=== PATIENT | female | born 1960 | race Caucasian/White ===

== ENCOUNTER 2022-04-28 08:30 | Emergency (ER) | payer OTHER, SELFPAY ==
[2022-04-28 08:45] VITALS: BP 141/84; PULSE 100; RESP 20; TEMP 36.8; O2SAT 94; BMI 24.0
--- NOTE | 2022-04-28 09:17 | CRLHL7_ITS ---
For Patients: As a result of the 21st Century Cures Act, medical imaging exams and procedure reports are released immediately into your electronic medical record. You may view this report before your referring provider. If you have questions, please contact your health care provider. Indication: Radiculopathy and weakness. Technique: T2, T1, and STIR sagittal as well as T1 and T2 axial sequences were obtained. No IV contrast. Comparison: None available. Findings: There are 5 lumbar type vertebral segments identified. The vertebral body heights appear maintained without evidence of fracture. No discrete T1 hypointense marrow infiltrating process. Hemangioma noted within the L5 vertebral body. Superior endplate Schmorl`s node at L3. The conus medullaris terminates at L1, normal. Cauda equina appears unremarkable. T12-L1: No spinal canal or neural foraminal stenosis. L1-2: Mild disc height loss and desiccation. Disc bulge coupled with ligamentum flavum thickening and facet arthropathy resulting in mild spinal canal narrowing. Mild neural foraminal narrowing. L2-3: Mild disc height loss and desiccation. Mild disc bulge coupled with ligamentum flavum thickening and facet hypertrophy resulting in mild spinal canal narrowing. No neural foraminal narrowing. L3-4: Grade 1 anterolisthesis. Disc bulge with facet arthropathy resulting in moderate spinal canal narrowing. Moderate lateral recess narrowing encroaching upon the descending L4 nerves. Mild neural foraminal narrowing. L4-5: Mild disc height loss and desiccation. Mild disc bulge with arthropathy resulting in mild spinal canal narrowing. Moderate lateral recess narrowing encroaching upon the descending L5 nerves. Mild neural foraminal narrowing. Moderate to severe facet arthropathy. L5-S1: Mild disc height loss and desiccation. No spinal canal narrowing. Moderate left neural foramina narrowing secondary to disc bulge and facet arthropathy. Severe facet hypertrophy. There is STIR hyperintensity surrounding the right greater than left facet joint. Mild sacroiliac joint osteoarthritis. Impression: 1. At L3-4, grade 1 anterolisthesis with moderate spinal canal and lateral recess narrowing. Encroachment upon the descending L4 nerves. 2. At L4-5, moderate lateral recess narrowing with encroachment upon the descending L5 nerves. Moderate to severe facet arthropathy. 3. At L5-S1, moderate left neural foraminal narrowing. Severe facet arthropathy, with edema suggesting reactive/inflammatory facet arthritis. 4. Milder degenerative changes at the remaining lumbar levels. Dictated by Alpesh Prieto MD @ 04/28/2022 2:10:32 PM (Electronically Signed)
[2022-04-28] MEDS: KETOROLAC 15 MG/ML inj IVP (09:30)
--- OUTSIDE RECORDS SUMMARY | 2022-04-28 09:54 | XMS_ITS | Clinical Summary ---
:1960 Author Organization [facility] [place] [address] Care Team Providers Name Role Phone All/Asthma, [place] Unavailable Unavailable Pcp, No Primary Care Provider Unavailable Allergies Active Allergy Reactions Severity Noted Date Comments Dust Mites Runny Nose Medium 10/03/2011 Allergens inclu de Mold fip Cat dog mite2 dust t-po llen Medications Medication Sig Dispensed Refills Start Date End Date Status FLUoxetine (PROZAC) 10 Take 1 capsule by 90 capsule 0 08/25/19 16 Active mg capsuleIndications: mouth once daily. Premenstrual tension syndrome fluticasone (50 mcg Inhale 2 Sprays 1 Bottle 4 10/02/2018 Active per actuation) nasal into both solution nostrils 2 times (FLONASE)Indications: daily. Acute non-recurrent maxillary sinusitis Active Problems Problem Noted Date Bilateral carpal tunnel syndrome 11/11/2014 Routine general medical examination at [facility] 10/18/2012 Overview: Normal colonoscopy 2010; due in ten year s Allergic rhinitis, cause unspecified 04/03/2006 Unspecified asthma(493.90) 04/03/2006 Premenstrual tension syndromes 04/03/2006 Immunizations Name Administration Dates Next Due Td (Age >=7 Years) 08/27/1998 Tdap 10/15/2016, 06/10/2009 Family History Medical History Relation Name Comments Other Father Renal failure, g out, and colostomy Cancer-breast Mother Good Health Mother Good Health Sister 2 Relation Name Status Comments Child Potter Syndrome Father Alive Mother Alive Sister 1 Alive Sister 2 Social History Tobacco Use Types Packs/Day Years Used Date Never Smoker Smokeless Tobacco: Never Used Tobacco Cessation: Counseling Given: Yes Alcohol Use Standard Drinks/Week Comments Yes 0 (1 standard drink = 0.6 oz pure alcoho l) drinks socially Sex Assigned at Date Recorded Not on file Obstetrics History Para Term AB IAB SAB Ectopic Multiple Living Live Births 4 3 1 1 2 Date Outcome GA Total Labor/2nd/3rd Weight Sex Delivery Anes PTL Vira A 1 A5 Name Clin Labor SAB Para Para Para Last Filed Vital Signs Vital Sign Reading Time Taken Comments Blood Pressure 122/70 10/02/2018 2:04 PM CDT Pulse 88 10/02/2018 2:04 PM CDT Temperature 36.6 ??C (97.8 ??F) 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 Respiratory Rate 20 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 Oxygen Saturation 96% 10/02/2018 2:04 PM CDT Inhaled Oxygen Concentration - - Weight 71.5 kg (157 lb 9.6 oz) 10/02/2018 2:04 PM CDT Height 162.6 cm (5' 4) 10/02/2018 2:04 PM CDT Body Mass Index 27.05 10/02/2018 2:04 PM CDT Plan of Treatment Health Maintenance Due Date Last Done Comments COVID-19 vaccine series (#1) 06/11/1960 Depression screening for age 12+ 1971 HIV for age 15-65 12/09/1974 Hepatitis C screening for age 0712/09/1977 18-79 Zoster (shingles) series for age 0712/09/2009 50+ (1 of 2) Mammogram for age 45-75 11/17/2015 11/16/2014, 11/11/2014, 11/04/2013, Additional history exists Lipids for age 45-75 08/07/2016 08/08/2011, 08/02/2011 BMI (ht and wt on same day) for 10/03/2019 10/02/2018 age 18+ Colonoscopy through age 75 09/01/2020 09/01/2010, 1 Influenza for age 50-64 02/02/2022 08/02/2011 (Declined) Pap test for age 21-65 07/20/2023 07/20/2020, 07/20/2020, 11/25/2015, Additional history exists Tetanus booster 10/15/2026 10/15/2016, 06/10/2009, 08/27/1998 Tdap Completed 10/15/2016, 06/10/2009 Results Not on filefrom Last 3 Months Insurance Payer Benefit Plan / Subscriber ID Effective Dates Phone Addre ss Type Group [employer] [id number] 2013-Present [address] [place] [address] MEDICA MEDICA APPLAUSE [id number] 2018-Presen [address] [address] [place] [address] RadhaEnrrique Justina Personal/Family Spouse 1958 [phone] (Home) [facility] [place] [id number] Advance Directives Documents on File Type Date Recorded Patient Hotel Administrative Assistant Explanati on Healthcare Directive 08/12/2020 08/12/2020 Healthcare Directive 08/12/2020 08/12/2020 Latest Code Status on File Code Status Date Activated Date Inactivated Comments Full Code 12/09/2014 8:06 AM 12/09/2014 11:36 AM Full Code 12/09/2014 6:33 AM 12/09/2014 8:06 AM 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 All/Asthma, Fran Consulting Physician Allergy and Immunology 10/03/11
[2022-04-28] MEDS: fentaNYL 100 MCG/2 ML inj 50 MCG IVP (10:51)
[2022-04-28 11:53] VITALS: BP 122/87; PULSE 91; RESP 18; O2SAT 92
[2022-04-28 14:11] VITALS: BP 123/88; PULSE 84; RESP 18; TEMP 35.9; O2SAT 97
--- NOTE | 2022-04-28 14:42 | ED_ITS ---
HPI - General Adult General Date Seen: 04/28/22 Chief complaint: Back Injury/Pain Stated complaint: Sciatica left leg, can't walk Time Seen by Provider: 04/28/22 09:10 Source: patient History of Present Illness HPI narrative: Patient is a 61-year-old woman who says for the past month she has been having some pain in the left side of her back with radiation down the left side of her leg into her foot. She says that she has been managing this with ibuprofen and Tylenol, she kind of thought it would just get better. She had not noticed any weakness, had had some paresthesias in the back/side of her leg to a slight degree. She has not had any fevers, no unexpected weight loss, night sweats, etcetera. Yesterday, she says the pain acutely became severe, to the point that she is finding it difficult to walk. She does not describe any true weakness however. She continues to deny any bowel or bladder dysfunction. She says that ibuprofen and Tylenol have not been helping since yesterday. She came in today because of difficulty managing the pain at home. She does not have a history of prior significant back pain. 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 She does not smoke or drink, denies any history of drug use. Related Data Home Medications Medication Instructions Recorded Confirmed fluoxetine 10 mg capsule 10 mg PO DAILY 04/28/22 04/28/22 Allergies Allergy/AdvReac Type Severity Reaction Status Date / Time No Known Drug Allergies Allergy Verified 04/28/22 08:48 Review of Systems Status of ROS: Reports: 10 or more systems reviewed and unremarkable except as noted in History and below [facility] Social History Smoking Status: Former smoker Do you use any of these nicotine containing products: None Second hand tobacco smoke exposure: No How often do you have a drink containing alcohol: 2-4 times a month How many standard drinks containing alcohol do you have on a typical day: 3 or 4 AUDIT-C Alcohol total score: 3 Non-prescribed substance use: denies use Exam Narrative: Exam Narrative: Vital signs as noted above. In general, an alert, well-appearing patient. Head: Normocephalic, atraumatic. Eyes: Pupils are equal reactive. Extraocular movements are full. Conjunctivae are normal. ENT: Mucous membranes are moist. Throat is normal. Neck: Supple without lymphadenopathy. Heart: Regular rate and rhythm. No murmur or rub. Lungs: Clear bilaterally. No increased work of breathing, crackles or wheezes. Abdomen: Soft and nontender. No organomegaly. Back: nontender to palpation. Extremities: Well perfused. No edema. No calf tenderness. Pulses intact. Neurologic: Patient is alert and oriented to person and place. Speech is fluent. Face is symmetric. Moves all extremities equally. Strength is 5/5 throughout the bilateral lower extremities with the exception of the left great toe where it is 4+/5. She notes some decreased sensation to light touch in the left lateral lower leg. Affect: Normal. Skin: Warm and dry. Well perfused. Const: Vital Signs, click to edit/add: Vital Signs - 24 hr 04/28/22 08:45 04/28/22 11:53 04/28/22 14:11 Temperature 98.2 F 96.6 F L Pulse Rate [Left P ulse Oximeter] 100 91 84 Respiratory Rate 20 18 18 Blood Pressure [Le ft Upper Arm] 141/84 H 122/87 123/88 Pulse Oximetry 94 92 97 Oxygen Delivery Me thod Room Air Room Air Room Air Documenting provider has reviewed patient's vital signs: yes Course Course Hospital Course: We placed an IV here, patient initially declined anything stronger than Toradol for pain as she wanted to be able to drive home. I gave her Toradol 15 mg IV. She did ask for something stronger when she got over to MRI so she had 50 mg of fentanyl at that time. Because of the neurologic changes on her exam I elected to do an MRI here to see what if anything was causing seeming radicular changes here. MRI was read as follows: Findings: There are 5 lumbar type vertebral segments identified. The vertebral body heights appear maintained without evidence of fracture. No discrete T1 hypointense marrow infiltrating process. Hemangioma noted within the L5 vertebral body. Superior endplate Schmorl`s node at L3. The conus medullaris terminates at L1, normal. Cauda equina appears unremarkable. T12-L1: No spinal canal or neural foraminal stenosis. L1-2: Mild disc height loss and desiccation. Disc bulge coupled with ligamentum flavum thickening and facet arthropathy resulting in mild spinal canal narrowing. Mild neural foraminal narrowing. L2-3: Mild disc height loss and desiccation. Mild disc bulge coupled with ligamentum flavum thickening and facet hypertrophy resulting in mild spinal canal narrowing. No neural foraminal narrowing. L3-4: Grade 1 anterolisthesis. Disc bulge with facet arthropathy resulting in moderate spinal canal narrowing. Moderate lateral recess narrowing encroaching upon the descending L4 nerves. Mild neural foraminal narrowing. L4-5: Mild disc height loss and desiccation. Mild disc bulge with arthropathy resulting in mild spinal canal narrowing. Moderate lateral recess narrowing encroaching upon the descending L5 nerves. Mild neural foraminal narrowing. Moderate to severe facet arthropathy. L5-S1: Mild disc height loss and desiccation. No spinal canal narrowing. Moderate left neural foramina narrowing secondary to disc bulge and facet arthropathy. Severe facet hypertrophy. There is STIR hyperintensity surrounding the right greater than left facet joint. Mild sacroiliac joint osteoarthritis. Impression: 1. At L3-4, grade 1 anterolisthesis with moderate spinal canal and lateral recess narrowing. Encroachment upon the descending L4 nerves. 2. At L4-5, moderate lateral recess narrowing with encroachment upon the descen ding L5 nerves. Moderate to severe facet arthropathy. 3. At L5-S1, moderate left neural foraminal narrowing. Severe facet arthropathy, with edema suggesting reactive/inflammatory facet arthritis. 4. Milder degenerative changes at the remaining lumbar levels. Overall, there does not seem to be a focal or acute finding that would suggest an L5 radiculopathy, although her exam certainly suggest that. Overall, I suggested to her that we treat her for radiculopathy, start her on a prednisone taper, have her use ibuprofen and Tylenol as her baseline pain relief and I have given her 10 oxycodone if needed for more severe symptoms. I would like her to follow up in clinic next week for reassessment to see how she is doing. If needed, a referral to Dr. San or someone else who does injections might be helpful to see if there is a role for injection for her symptoms. Return to the ER for acute worsening or new symptoms such as fever. Vital Signs Vital signs: Initial Vital Signs Temperature 98.2 F 04/28/22 08:45 Temperature Source Temporal Artery Scan 04/28/22 08:45 Pulse Rate 100 04/28/22 08:45 Respiratory Rate 20 04/28/22 08:45 Blood Pressure 141/84 H 04/28/22 08:45 Blood Pressure Mean 103 04/28/22 08:45 Blood Pressure Position Sitting 04/28/22 08:45 Pulse Oximetry 94 04/28/22 08:45 Oxygen Delivery Method 04/28/22 08:45 Vital Signs Temperature 98.2 F 04/28/22 08:45 Pulse Rate 100 04/28/22 08:45 Respiratory Rate 20 04/28/22 08:45 Blood Pressure 141/84 H 04/28/22 08:45 Pulse Oximetry 94 04/28/22 08:45 Oxygen Delivery Method 04/28/22 08:45 Temperature 96.6 F L 04/28/22 14:11 Pulse Rate 84 04/28/22 14:11 Respiratory Rate 18 04/28/22 14:11 Blood Pressure 123/88 04/28/22 14:11 Pulse Oximetry 97 04/28/22 14:11 Oxygen Delivery Method 04/28/22 14:11 Discharge Plan Discharge Clinical Impression: Lumbar radiculopathy Patient Disposition: Home, Self-Care Condition: Improved Instructions: Lumbar Radiculopathy (ED) Additional Instructions: Prednisone as follows: Take 3 tablets daily x3 days, then 2 tablets daily x3 days, then 1 tablet daily x3 days. Ibuprofen 400 mg plus Tylenol 1000 mg 3 times daily with food for the next 1-2 weeks. For severe uncontrolled pain, oxycodone if needed. Be aware this is habit-forming, take only as needed, discard any unused pills. Follow up with Dr. Fleming next week for reassessment. Return to the ER at any time for acute worsening of weakness, new symptoms such as fever, chills, or bladder changes. Prescriptions: No Action fluoxetine 10 mg capsule 10 mg PO DAILY Follow Up/Referrals: Elana Fleming MD [Primary Care Provider] - Stand Alone Forms: [facility] Info Instructions
== END 2022-04-28 14:45 | disposition home or self-care (01) ==
PROVIDERS: Emergency Provider Emergency Medicine; PCP Internal Medicine
DX: M54.16 Radiculopathy, lumbar region (principal)
CPT/HCPCS: 72148; 96374; 96375; 99284; J1885; J3010

== ENCOUNTER 2022-11-28 16:46 | Outpatient (CLI) | payer OTHER, SELFPAY ==
--- NOTE | 2022-11-28 16:45 | CRLHL7_ITS ---
For Patients: As a result of the Century Cures Act, medical imaging exams and procedure reports are released immediately into your electronic medical record. You may view this report before your referring provider. If you have questions, please contact your health care provider. BILATERAL SCREENING MAMMOGRAM WITH COMPUTER-AIDED DETECTION AND TOMOSYNTHESIS TECHNIQUE: CC and MLO views were obtained. These mammographic images have been obtained using full-field digital technique. These mammographic images were interpreted with the benefit of computer-aided detection. Breast tomosynthesis was used in this interpretation. COMPARISON FILM: 08/17/20, 07/30/19, 02/27/18. FINDINGS: The breasts are heterogeneously dense, which may obscure small masses. IMPRESSION: There is no radiographic evidence for malignancy. ASSESSMENT: BI-RADS Category 2: Benign RECOMMENDATION: Routine screening mammogram in 1 year. A lay language report of this examination will be provided to the patient. STEPHANE CONRAD M.D. Diagnostic Radiologist [email or web address] Transcribed: 11/29/2022, 2:[address]/Dictated by: Stephane Conrad MD @ 11/29/2022 9:56:00 AM (Electronically Signed)
== END 2022-11-28 16:47 | disposition home or self-care (01) ==
LOC: MAMMO 16:47
PROVIDERS: PCP Internal Medicine; Visit Provider Internal Medicine
DX: Z12.31 Encounter for screening mammogram for malignant neoplasm of breast (principal); R92.2 Inconclusive mammogram
CPT/HCPCS: 77063; 77067

== ENCOUNTER 2023-02-02 09:33 | Outpatient (CLI) | payer OTHER, SELFPAY | END 2023-02-02 09:34 | disposition home or self-care (01) | PROVIDERS: PCP Internal Medicine; Visit Provider Family Medicine | DX: R10.9 Unspecified abdominal pain (principal) | CPT/HCPCS: 80053; 82150; 83690 ==

== ENCOUNTER 2023-04-09 22:59 | Emergency (ER) | payer OTHER, SELFPAY ==
[2023-04-09 23:12] VITALS: BP 104/70; PULSE 123; RESP 18; TEMP 36.6; O2SAT 96; BMI 26.6
--- NOTE | 2023-04-10 01:07 | ED_ITS ---
HPI - General Adult General Chief complaint: Nausea/Vomiting Stated complaint: vomitting, fever, diarrhea Time Seen by Provider: 04/10/23 00:51 Source: patient Mode of arrival: ambulatory Limitations: no limitations History of Present Illness HPI narrative: 62-year-old female with history of asthma and anxiety presents the emergency department with nausea and vomiting and fever. Patient has been having intermittent abdominal pain for the last year and actually had an outpatient CT scan scheduled for yesterday which she last minute canceled and has no rescheduled for next week. It was ordered last week. She had an outpatient visit with Dr. Fleming, notes reviewed. Patient has had nausea and vomiting now for the past 3 days. She has had body aches with headache for the last 5 days, fever to 103 per her report at home today. No specific area of localizing infection like productive cough or dysuria. She does have some left upper quadrant area abdominal pain but more so in the ribs. She believes that this is likely from vomiting the last couple of days. She has no prior history of abdominal surgeries but does report a known umbilical hernia. No trauma or injury. No bloody stools. Did have diarrhea yesterday. Sore throat at onset of illness. To go home COVID test that was negative yesterday per her report. Has not tried any medication to help with her symptoms. Has some achy diffuse a bdominal pain but nothing focal. Past medical history notable for persistent asthma and anxiety. Home meds are Advair and fluoxetine. Nonsmoker. ROS is notable for the generalized, HEENT, chest and abdominal symptoms as above. Otherwise denies times 12 systems. Related Data Previous Rx's Medication Instructions Recorded fluoxetine 10 mg capsule 10 mg PO DAILY #90 caps 10/19/22 tizanidine 4 mg tablet 2 mg (1/2 x 4 mg) PO QHS PRN 04/03/23 muscle spasticity #20 tabs azithromycin 250 mg tablet See Rx Instructions PO .COMPLEX #6 04/10/23 tabs cefdinir 300 mg capsule 300 mg PO Q12H #15 caps 04/10/23 ondansetron 4 mg disintegrating 4 mg PO Q8H PRN nausea and 04/10/23 tablet vomiting #7 tabs Allergies Allergy/AdvReac Type Severity Reaction Status Date / Time animal dander Allergy Mild Congested Verified 04/10/23 03:02 Dust Allergy Mild Congested Uncoded 04/10/23 03:02 [place] tree Allergy Mild Congested Uncoded 04/10/23 03:02 Pollen Allergy Mild Congested Uncoded 04/10/23 03:02 PFSH PFS Surgical History History of total hip replacement (2020) ?Z96.649 - Presence of unspecified artificial hip joint (ICD-10) History of tonsillectomy ?Z90.89 - Acquired absence of other organs (ICD-10) History of section ?Z98.891 - History of uterine scar from previous surgery (ICD-10) History of carpal tunnel release ?Z98.890 - Other specified postprocedural states (ICD-10) Social History Smoking Status: Never smoker Do you use any of these nicotine containing products: None Second hand tobacco smoke exposure: No How often do you have a drink containing alcohol: 2-4 times a month How many standard drinks containing alcohol do you have on a typical day: 3 or 4 AUDIT-C Alcohol total score: 3 Non-prescribed substance use: denies use Little interest or pleasure in doing things: not at all Feeling down, depressed, or hopeless: not at all Exam Const: Vital Signs, click to edit/add: Vital Signs - 24 hr 04/09/23 23:12 04/10/23 03:02 Temperature 97.9 F 102.1 F H Pulse Rate [Pulse Oximeter] 123 H 87 Respiratory Rate 18 18 Blood Pressure [Ri ght Upper Arm] 104/70 114/90 H Pulse Oximetry 96 96 Oxygen Delivery Me thod Room Air Documenting provider has reviewed patient's vital signs: yes Common normals: no apparent distress and alert General appearance: cooperative, comfortable and well kempt Orientation/consciousness: Yes awake HENMT: Common normals: normocephalic Head and scalp: normocephalic Face and sinus: normal facial exam Mouth: oral and palatal mucosa normal Eye: Common normals: EOMs intact bilaterally, conjunctivae normal and no scleral icterus General eye: normal appearance of both eyes Conjunctiva: conjunctiva(e) normal Neck & C-Spine: Common normals: full ROM and no lymphadenopathy Resp: Common normals: normal respiratory effort, no use of accessory muscles and clear to auscultation bilaterally Effort & inspection: able to speak in complete sentences Auscultation: clear to auscultation bilaterally Cardio: Common normals: regular rate, regular rhythm, S1 normal heart sound, S2 normal heart sound and no murmurs Rate: regular rate Rhythm: regular rhythm Heart sounds: S1 normal and S2 normal GI: Inspection: normal to inspection Other: Abdomen is diffusely tender, does seem slightly distended. The bowel sounds are abnormal. There specifically hypoactive. It does seem to be in all 4 mit[address]. There is a small nonincarcerated umbilical hernia. No obvious mass, but distended bowels to make exam a bit difficult. : Common normals: no CVA tenderness Bladder/kidney exam: no CVA tenderness Back & Pelvis: Common normals: no CVA tenderness Extremity: Common normals: normal to inspection and normal capillary refill Neuro: Sensorium/orientation: awake and alert Speech: speech normal Motor exam: strength 5/5 throughout Psych: Appearance: well kempt Activity/motor behavior: appropriate eye contact Mood and affect: euthymic mood Insight: insight good Judgement: judgment good Skin: Common normals: no rashes or lesions noted General skin exam: no rashes or lesions noted Course Course ED Course: Fever, nausea vomiting, nonspecific progressive symptoms. Concern for intra- abdominal process, wide differential diagnosis. Potentially also viral process, strep, multiple others. Recommended viral and strep swabs, basic labs, CT scan of the abdomen and pelvis and urinalysis. 1 L of normal saline with 4 mg of Zofran while we await findings. Patient was agreeable to initial plan Reevaluation(s) Time of Reevaluation #1: 03:54 Reevaluation #1: Discussed findings with patient, she is feeling better after the Zofran and fluids. She have a pretty severe pneumonia based on the CT of the abdomen and pelvis and also laboratory findings. But she is not hypoxic nor tachypneic nor hypotensive. I think she can manage outpatient. I am concerned enough that I would like to give her 1st dose of antibiotics IV. Will give Rocephin 1 g and azithromycin 500 mg both IV. Will then transition on to orals. Discussed that I would like some overlap with the cefdinir and she will start that 1 this evening and there azithromycin can wait until tomorrow morning for the next dose. Reviewed alarm symptoms such as severe dyspnea, weakness, further dehydration. Will also give her some Zofran to have at home. Push fluids, advised rest for the next few days. All questions answered. She verbalizes understanding and agreement. Vital Signs Vital signs: Initial Vital Signs Temperature 97.9 F 04/09/23 23:12 Temperature Source Temporal Artery Scan 04/09/23 23:12 Pulse Rate 123 H 04/09/23 23:12 Respiratory Rate 18 04/09/23 23:12 Blood Pressure 104/70 04/09/23 23:12 Blood Pressure Mean 81 04/09/23 23:12 Blood Pressure Position Sitting 04/09/23 23:12 Pulse Oximetry 96 04/09/23 23:12 Oxygen Delivery Method Room Air 04/09/23 23:12 Vital Signs Temperature 97.9 F 04/09/23 23:12 Pulse Rate 123 H 04/09/23 23:12 Respiratory Rate 18 04/09/23 23:12 Blood Pressure 104/70 04/09/23 23:12 Pulse Oximetry 96 04/09/23 23:12 Oxygen Delivery Method Room Air 04/09/23 23:12 Temperature 102.1 F H 04/10/23 03:02 Pulse Rate 87 04/10/23 03:02 Respiratory Rate 18 04/10/23 03:02 Blood Pressure 114/90 H 04/10/23 03:02 Pulse Oximetry 96 04/10/23 03:02 Oxygen Delivery Method Room Air 04/09/23 23:12 Medications Administered Medications: Discontinued Medications Generic Name Dose Route Start Last Admin Trade Name Maggie PRN Reason Stop Dose Admin Acetaminophen 1,000 mg 04/10/23 03:07 04/10/23 03:06 Acetaminophen 500 Mg Tablet PO 04/10/23 03:08 1,000 mg ONCE ONE Administration Sodium Chloride 1,000 mls @ 1,000 mls/hr 04/10/23 01:04 04/10/23 03:33 0.9 % Sodium Chloride 1000 Ml IV 04/10/23 02:03 Infused .Q1H GEN Infusion Ondansetron HCl 4 mg 04/10/23 01:03 04/10/23 02:18 Ondansetron 2 Mg/Ml Inj IVP 04/10/23 01:04 4 mg ONCE ONE Administration Medical Decision Making Lab Data Lab results reviewed: Yes I reviewed the patient's lab results Lab results narrative: Marked leukocytosis and elevated CRP. Labs: Lab Results 04/10/23 Range/Units 01:50 WBC 24.81 H (4.50-11.00) K/uL RBC 4.33 (4.00-5.20) m/uL Hgb 13.4 (12.0-16.0) gm/dL Hct 39.3 (33.0-51.0) % MCV 91 (80-100) fL MCH 31 (26-34) pg MCHC 34 (32-36) gm/dL RDW Coeff of [place] 12.7 (11.5-15.5) % Plt Count 263 (140-440) K/uL Neut % (Auto) 88.9 H (42.0-72.0) % Lymph % (Auto) 3.5 L (20-44) % [place] % (Auto) 5.8 (0.0-11.0) % Eos % (Auto) 0.0 (0.0-7.0) % Baso % (Auto) 0.1 (0.0-3.0) % Neut # (Auto) 22.10 H (1.7-7.0) K/uL Lymph # (Auto) 0.90 (0.90-2.90) K/uL [place] # (Auto) 1.40 H (0.00-0.90) K/UL Eos # (Auto) 0.00 (0.00-0.50) K/uL Baso # (Auto) 0.00 (0.00-0.30) K/uL Abs Immat Gran (auto) 0.40 H (0.00-0.30) K/uL Imm/Tot Granulo (auto) 1.7 % Sodium 134 L (135-149) mmol/L Potassium 3.5 L (3.6-5.1) mmol/L Chloride 102 (96-114) mmol/L Carbon Dioxide 24 (20-32) mmol/L Anion Gap 8 (7-15) mEq/L BUN 20 (7-30) mg/dL Creatinine 1.0 (0.5-1.5) mg/dL Estimated Creat Clear 47.63 Estimated GFR 63 ml/min Glucose 118 H (60-115) mg/dL Calcium 9.0 (8.4-10.6) mg/dL Total Bilirubin 1.3 (0.1-1.5) mg/dL AST 31 (12-35) U/L ALT 17 (4-35) U/L Alkaline Phosphatase 105 (40-150) U/L C-Reactive Protein 37.7 H (0.5-1.0) mg/dL Total Protein 7.3 (6.0-8.3) g/dL Albumin 3.9 (3.3-5.0) g/dL Lipase 24 (23-300) U/L Urine Color Yellow (Yellow) Urine Appearance Clear (Clear) Urine pH 5.5 (5.0-8.5) Ur Specific [place] 1.025 (1.000-1.030) Urine Protein 3+ A (Negative) Urine Glucose (UA) Negative (Negative) Urine Ketones 1+ A (Negative) Urine Blood 1+ A (Negative) Urine Nitrite Negative (Negative) Urine Bilirubin 1+ A (Negative) Urine Urobilinogen 1.0 (0.2-1.0) Ur Leukocyte Esterase Trace A (Negative) Urine RBC 2-5 A (0-2) Urine WBC 5-10 A (0-5) Ur Squamous Epith Cells Moderate A (None-Few) Amorphous Sediment Few A (None) Urine Bacteria Moderate A (None) SARS-CoV-2 (PCR) Negative SARS-CoV-2 (Negative) Influenza Type A (PCR) Negative PCR FLU A (Negative) Influenza Type B (PCR) Negative PCR FLU B (Negative) RSV (PCR) Negative PCR RSV (Negative) Group A Strep DNA NOT DETECTED (Not Detectd) Imaging Data CT scan - abdomen: Attestation: I have reviewed the pertinent imaging results. My impression: Abdomen looks okay but the chest portion clearly shows a left-sided pneumonia. Discharge Plan Discharge Clinical Impression: Pneumonia Patient Disposition: Home w/ Parent or Adult Condition: Stable Instructions: Community Acquired Pneumonia (DC) Additional Instructions: As we discussed, you have a fairly impressive pneumonia causing your sickness. There are no signs of sepsis or body wide infection thankfully. This CT scan of your abdomen and pelvis look good. Your blood work shows infection and inflammation but no major electrolyte, kidney, dehydration or other organ abnormalities. I am worried about how severe your pneumonia is but you do not meet any criteria to need to be in the hospital. Because I am concerned, I started you on IV antibiotics initially. This will lessen your chance of worsening. You will need to continue on antibiotics by mouth after leaving the emergency room this morning. He will be on 2 separate antibiotics, cefdinir and a Zithromax. The cefdinir is dose twice daily, your next dose will be this evening. Continue taking this twice daily for the next week. The azithromycin is taken once daily. You were already given today's dose. Your next dose will be tomorrow morning. You may take this at the same time as your cefdinir. Continue using your Advair. Hopefully the IV fluids and medication that your given will tie you over. I will also send some anti nausea medicine, Zofran also known as ondansetron. Continue to push fluids and rest for the next few days. If you become severely weak or very short of breath, come back to the emergency department right away. Prescriptions: New cefdinir 300 mg capsule 300 mg PO Q12H Qty: 15 0RF azithromycin 250 mg tablet See Rx Instructions .ROUTE .COMPLEX Qty: 6 0RF Rx Instructions: For 250 mg dose pack: take 500 mg today (day 1), then 250 mg for 4 days (days 2-5) ondansetron 4 mg tablet,disintegrating 4 mg PO Q8H PRN (Reason: nausea and vomiting) Qty: 7 0RF No Action tizanidine 4 mg tablet 2 mg PO QHS PRN (Reason: muscle spasticity) Qty: 20 1RF fluoxetine 10 mg capsule 10 mg PO DAILY Qty: 90 3RF Follow Up/Referrals: Elana Fleming MD [Primary Care Provider] - Stand Alone Forms: [employer] Info Instructions
[2023-04-10 02:01] LABS: Appearance Urine Clear (Clear); Bilirubin Urine 1+ (Negative); Blood Urine 1+ (Negative); Color Urine Yellow (Yellow); Glucose Urine Negative (Negative); Ketones Urine 1+ (Negative); Leukocyte Esterase Urine Trace (Negative); Nitrite Urine Negative (Negative); Protein Urine 3+ (Negative); Specific Gravity Urine 1.025 (1.000-1.030); pH Urine 5.5 (5.0-8.5)
[2023-04-10 02:05] LABS: Basophils Percent Auto 0.1 % (0.0-3.0); Hematocrit 39.3 % (33.0-51.0); Hemoglobin* 13.4 gm/dL (12.0-16.0); Immature Granulocytes Pct Auto 1.7 %; Lymphocytes Percent Auto 3.5 % (20-44); Mean Corpuscular HGB Conc 34 gm/dL (32-36); Mean Corpuscular Hemoglobin 31 pg (26-34); Mean Corpuscular Volume 91 fL (80-100); Monocytes Percent Auto 5.8 % (0.0-11.0); Neutrophils Percent Auto 88.9 % (42.0-72.0); Platelet Count* 263 K/uL (140-440); RDW Coefficient of Variation % 12.7 % (11.5-15.5); Red Blood Count 4.33 m/uL (4.00-5.20); White Blood Count* 24.81 K/uL (4.50-11.00)
[2023-04-10 02:13] LABS: Albumin* 3.9 g/dL (3.3-5.0); Chloride* 102 mmol/L (96-114); Potassium* 3.5 mmol/L (3.6-5.1); Sodium* 134 mmol/L (135-149)
[2023-04-10 02:15] LABS: Bilirubin Total* 1.3 mg/dL (0.1-1.5); Est. Creatinine Clearance* 47.63; Estimated Glomerular Filt Rate 63 ml/min
[2023-04-10 02:16] LABS: Alanine Aminotransferase* 17 U/L (4-35); Alkaline Phosphatase* 105 U/L (40-150); Anion Gap 8 mEq/L (7-15); Aspartate Amino Transferase* 31 U/L (12-35); Blood Urea Nitrogen* 20 mg/dL (7-30); Carbon Dioxide* 24 mmol/L (20-32); Glucose* 118 mg/dL (60-115); Lipase* 24 U/L (23-300); Slide Review Reflex No; Total Protein* 7.3 g/dL (6.0-8.3)
[2023-04-10] MEDS: ONDANSETRON 2 MG/ML inj 4 MG IVP (02:18)
[2023-04-10] MEDS: 0.9 % SODIUM CHLORIDE 1000 ml 1,000 ML IV (02:18)
[2023-04-10 02:29] LABS: Amorphous Sediment Urine Few; Bacteria Urine Moderate; Squamous Epithelial Cell Urine Moderate (None-Few)
--- NOTE | 2023-04-10 02:33 | CRLHL7_ITS ---
For Patients: As a result of the Century Cures Act, medical imaging exams and procedure reports are released immediately into your electronic medical record. You may view this report before your referring provider. If you have questions, please contact your health care provider. INDICATION: Abdominal pain, vomiting, fever, diarrhea. TECHNIQUE: CT abdomen and pelvis acquired with 74 cc Isovue 370 IV contrast. COMPARISON: None. FINDINGS: Lower chest: Partially visualized left lower lobe consolidation. Liver: Unremarkable. Normal in size and attenuation. No suspicious masses. Gallbladder and bile ducts: Unremarkable. No stones or inflammation. No biliary ductal dilatation. Spleen: Unremarkable. Normal in size. No masses. Adrenal glands: Unremarkable. No nodules. Pancreas: Unremarkable. No mass or inflammation. Kidneys: Unremarkable. No suspicious masses, stones, or hydronephrosis. GI tract: Unremarkable. Normal in caliber. No evidence of obstruction. Appendix is not well visualized, however there is no evidence of right lower quadrant inflammatory stranding. Lymph nodes: No lymphadenopathy. Vasculature: Unremarkable. Omentum/Peritoneum/Abdominal Wall: Fat containing umbilical hernia. No free air or significant free fluid. Pelvis: Unremarkable. Bones: Degenerative changes. Left hip arthroplasty. IMPRESSION: 1. Partially visualized left lower lobe consolidation, concerning for pneumonia. 2. Otherwise no acute abdominal or pelvic abnormality. Please note that all CT scans at this facility use dose modulation, iterative reconstruction, and/or weight-based dosing when appropriate to reduce radiation dose to as low as reasonably achievable. Dictated by Angel Bolanos MD @ 04/10/2023 3:31:25 AM (Electronically Signed)
[2023-04-10 02:35] LABS: Strep A DNA Probe* NOT DETECTED (Not Detectd)
[2023-04-10 02:36] LABS: PCR FLU A Negative PCR FLU A (Negative); PCR FLU B Negative PCR FLU B (Negative); PCR RSV Negative PCR RSV (Negative)
[2023-04-10 02:49] LABS: SARS PCR* Negative SARS-CoV-2 (Negative)
[2023-04-10 03:02] VITALS: BP 114/90; PULSE 87; RESP 18; TEMP 38.9; O2SAT 96
[2023-04-10 03:02] LABS: C Reactive Protein* 37.7 mg/dL (0.5-1.0)
[2023-04-10] MEDS: ACETAMINOPHEN 500 MG TABLET 1000 MG PO (03:06)
[2023-04-10] MEDS: cefTRIAXone 1 GM in 0.9 % SODIUM CHLORIDE Mini-bag 100 ML IVPB (03:56)
[2023-04-10] MEDS: AZITHROMYCIN 500 MG in 0.9 % SODIUM CHLORIDE 250 ml 250 ML 255 MG IVPB (04:31)
[2023-04-10 06:15] VITALS: BP 121/79; PULSE 79; RESP 18; TEMP 37.8; O2SAT 97
== END 2023-04-10 06:18 | disposition home or self-care (01) ==
PROVIDERS: Emergency Provider Family Medicine; PCP Internal Medicine
DX: J18.9 Pneumonia, unspecified organism (principal)
CPT/HCPCS: 36415; 74177; 80053; 81003; 81015; 83690; 85025; 86140; 87086; 87631; 87651; 96365; 96366; 96375; 99284; A9270; J0456; J0696; J2405; J7030; J7050; Q9967

== ENCOUNTER 2024-05-06 14:17 | Outpatient (CLI) | payer OTHER, SELFPAY ==
--- OUTSIDE RECORDS SUMMARY | 2024-05-06 14:20 | XMS_ITS | Clinical Summary ---
Author Organization [facility] Address [place], [place] [address] Care Team Providers Care Tankage Supervisor Name Role Phone All/Asthma, [place] Unavailable Unavailab le Pcp, No Primary Care Provider Unavailabl e Allergies Active Allergy Reactions Criticality Noted Date Comments Dust Mites Runny Nose Medium 10/03/2011 Allergens include Mold fip Cat dog mite2 dust t-pollen Medications Medication Sig Dispensed Refills Start Date End Date Status FLUoxetine (PROZAC) 10 mg capsuleIndications:P remenstrual tension syndrome Take 1 capsule by mouth once daily. 90 capsule 0 08/25/2015 Active fluticasone (50 mcg per actuation) nasal solution (FLONASE)Indications :Acute non-recurrent maxillary sinusitis Inhale 2 Sprays into both nostrils 2 times daily. 1 Bottle 4 10/02/2018 Active Active Problems Problem Noted Date Diagnosed Date Bilateral carpal tunnel syndrome 11/11/2014 Routine general medical exam ination at a health care facility 10/18/2012 Overview (10/18/2012): Normal colonoscopy 2010; due in ten years Allergic rhinitis, cause unspecified 04/03/2006 Unspecified asthma(493.90) 04/03/2006 Premenstrual tension syndromes 04/03/2006 Immunizations Name Administration Dates Next Due Td (Age >=7 Years) 08/27/1998 Tdap 10/15/2016,06/10/2009 Family History Medical History Relation Name Comments Other Father Renal failure, gout, and colostomy Cancer-breast Mother Good Health Mother Good Health Sister 2 Relation Name Status Comments Child Potter Syndrome Father Alive Mother Alive Sister 1 Alive Sister 2 Social History Tobacco Use Types Packs/Day Years Used Date Smoking Tobacco: Never Smokeless Tobacco: Never Tobacco Cessation:Counseling Given: Yes Alcohol Use Standard Drinks/Week Comments Yes 0 (1 standard drink = 0.6 oz pur e alcohol) drinks socially Sex and Gender Information Value Date Recorded Sex Assigned at Not on file Gender Identity Not on file Sexual Orientation Not on file Obstetrics History Para Term AB IAB SAB Ectopic Multiple Livin g Live Births 4 3 1 1 2 Date Outcome GA Total Labor Labor/2nd/3rd Weight Sex Type Anes PTL Vira A1 A5 Name Clin SAB Para Para Para Last Filed Vital Signs Vital Sign Reading Time Taken Comments Blood Pressure 122/70 10/02/2018 2:04 PM CDT Pulse 88 10/02/2018 2:04 PM CDT Temperature 36.6 C (97.8 F) 06/25/2018 6:46 AM SUPPLY CHAIN GENERALIST Respiratory Rate 20 06/25/2018 6:46 AM SUPPLY CHAIN GENERALIST Oxygen Saturation 96% 10/02/2018 2:04 PM CDT Inhaled Oxygen Concentration - - Weight 71.5 kg (157 lb 9.6 oz) 10/02/2018 2:04 P M CDT Height 162.6 cm (5' 4) 10/02/2018 2:04 PM CDT Body Mass Index 27.05 10/02/2018 2:04 PM CDT Plan of Treatment Health Maintenance Due Date Last Done Comments Depression screening for age 12+ 1971 HIV for age 15-65 12/09/1974 Hepatitis C screening for age 18-79 12/09/1977 Zoster (shingles) series for age 50+ (1 of 2) 12/09/2009 Mammogram for age 45-75 11/17/2015 11/17/19 15, 11/11/2014, 11/04/2013, Additional history exists Lipids for age 45-75 08/07/2016 08/08/2011, 08/02/19 12 BMI (ht and wt on same day) for age 18+ 10/03/2019 10/02/2018 Colonoscopy through age 75 09/01/2020 09/01/2010, Pap test for age 21-65 07/20/2023 , 07/20/2020, 11/25/2015, Additional history exists COVID-19 vaccine series (2023- season) 2024 Influenza for age 50-64 02/03/2024 08/02/2011 (Decli joel) Tetanus booster 10/15/2026 10/15/2016, 12/2009, 08/27/1998 Tdap Completed 10/15/2016, 06/10/2009 Pneumococcal series for age 6-64 Aged Out No longer eligible based on patient's age to complete this topic Procedures Procedure Name Priority Date/Time Associated Diagnosis Comments EMPLOYMENT SPECIALIST/PROGRAM MANAGER THIN PREP PAP SCREEN IMAGED Routine 07/20/2020 1:40 PM SUPPLY CHAIN GENERALIST XR FFDM MAMMO UNI ADDL VIEWS RIGHT (IA) Routine 11/16/2014 8:21 AM CDT Other (abnormal) findings on radiological examination of breast LIPID PANEL Routine 08/08/2011 8:12 AM SUPPLY CHAIN GENERALIST Routine general medical examination at a health care facility COLONOSCOPY SCREENING Routine 09/01/2010 from Last 3 Months or Most Recently Relevant to Health Maintenance Results * EMPLOYMENT SPECIALIST/PROGRAM MANAGER THIN PREP PAP SCREEN IMAGED (07/20/2020 1:40 PM SUPPLY CHAIN GENERALIST) Case Report Gynecologic Cytology Report Case: [id number] Authorizing Provider: Elana Fleming MD Collected: 07/20/2020 1340 Ordering Location: [facility] Received: 07/22/2020 0725 First Screen: Arlen Quigley Rescreen: Carmen Worley Specimen: EMPLOYMENT SPECIALIST/PROGRAM MANAGER ThinPrep Vial Screening, Cervical/Vaginal 07/30/2020 10:38 AM SUPPLY CHAIN GENERALIST [facility] INTERPRETATION/ RESULT NEGATIVE FOR INTRAEPITHELIAL LESION OR MALIGNANCY (NIL) (none) 07/30/2020 10:38 AM SUPPLY CHAIN GENERALIST [facility] IMEN ADEQUACY Satisfactory for evaluation Endocervical cells cannot be evaluated due to severe atrophy 07/30/2020 10:38 AM SUPPLY CHAIN GENERALIST [facility] HPV REQUEST HPV and PAP 07/30/2020 10:38 AM SUPPLY CHAIN GENERALIST [facility] Date of LMP 07/30/2020 10:38 AM [facility] Comment:2014 Last Pap Date 11/25/2015 07/30/2020 10:38 AM [facility] Last Pap Result NIL 10:38 AM [facility] Menstrual Status 07/30/2020 10:38 AM [facility] Comment:Menopause Additional Information 07/30/2020 10:38 AM [facility] Comment: Interpreted at [facility] - [address], [place] [address] Automated Review Successful 07/30/2020 10:38 AM [facility] Comment:Specimen processed s uccessfully by automated automobile dealer device, ThinPrep Imaging System, [facility] ANCILLARY TESTING EMPLOYMENT SPECIALIST/PROGRAM MANAGER HPV Ordered, Please see separate report 07/30/2020 10:38 AM [facility] Note The pap test is a screening technique, not a diagnostic procedure. It is used primarily to screen for squamous cancers and precursor lesions. Published studies have shown that it is subject to both false negative and false positive results. The pap test should not be used as the sole means to diagnose or exclude pre-malignant and malignant lesions. 07/30/2020 10:38 AM [facility] Other (Cervical/Vagina l) 07/20/2020 1:40 PM SUPPLY CHAIN GENERALIST 07/22/2020 7:25 AM SUPPLY CHAIN GENERALIST Elana Fleming MD PATHOLOGY/CYTOLOGY [facility] [address] [place] [address], [place] * XR FFDM MAMMO UNI ADDL VIEWS RIGHT (11/16/2014 8:21 AM CDT) Anatomical Region Laterality Modality BREASTS, Breast Right Right Mammograph y, Other 11/16/2014 8:52 AM CDT Narrative 11/16/2014 11:05 AM CDT ADDITIONAL VIEWS RIGHT DIGITAL MAMMOGRAM, 11/16/2014 INDICATION: Evaluate for RIGHT breast nodule noted on the screening mammogram of 11/11/2014. TECHNIQUE: Diagnostic RIGHT mammogram. FINDINGS: There is scattered fibroglandular densities. Focal compression views in the CC, rolled medial, rolled lateral and 90 degree lateral view were obtained and demonstrate a persistent small nodular density at the 9 o'clock position RIGHT breast. Recommend correlation with ultrasound. BI-RADS Category 0: Incomplete - Needs Additional Imaging Evaluation and/or Prior Mammograms for Comparison. Dictated by: Justina Bravo MD @11/16/2014 8:52:38 AM Procedure Note Shamir Bravo MD - 11/16/2014 ADDITIONAL VIEWS RIGHT DIGITAL MAMMOGRAM, 11/16/2014 INDICATION: Evaluate for RIGHT breast nodule noted on the screening mammogram of11/11/2014. TECHNIQUE: Diagnostic RIGHT mammogram. FINDINGS: There is scattered fibroglandular densities. Focal compression views inthe CC, rolled medial, rolled lateral and 90 degree lateral view wereobtained and demonstrate a persistent small nodular density at the 9o'clock position RIGHT breast. Recommend correlation with ultrasound. BI-RADS Category 0: Incomplete - Needs Additional Imaging Evaluationand/or Prior Mammograms for Comparison. Dictated by: Justina Bravo MD @11/16/2014 8:52:38 AM [facility] * LIPID PANEL (08/08/2011 8:12 AM SUPPLY CHAIN GENERALIST) CHOLESTEROL,TOTAL 173 110 - 199 mg/dL [facility] TRIGLYCERIDES 135 <150 mg/dL [facility] HDL CHOLESTEROL 47 >40 mg/dL [facility] CHOL/HDL RATIO 3.68 <4.51 [facility] LDL CHOLESTEROL 99 <131 mg/dL [facility] PATIENT STATUS Fasting [facility] Blood specimen (specimen) BLOOD SPECIMEN / Unknown 08/08/2011 8:12 AM SUPPLY CHAIN GENERALIST 08/08/2011 7:53 AM SUPPLY CHAIN GENERALIST [facility] CHEMISTRY [facility] [address] [place] [address] * COLONOSCOPY SCREENING (09/01/2010) Talia Yates GI PROCEDURE ORD from Last 3 Months or Most Recently Relevant to Health Maintenance Advance Directives Documents on File Type Date Recorded Patient Earth Burner Expl anation Healthcare Directive 08/12/2020 021 Healthcare Directive 08/12/2020 021 * Full Code (Latest Code Status on File) Date Activated Date Inactivated Comments 12/09/2014 8:06 AM 12/09/2014 11:36 AM * Full Code Date Activated Date Inactivated Comments 12/09/2014 6:33 AM 12/09/2014 8:06 AM Care Teams Tankage Supervisor Relationship Specialty Start Date End Date Pcp, No . PCP - General 07/15/15 All/Asthma, Fran Consulting Physician Allergy and Immunology 10/03/11
--- NOTE | 2024-05-06 14:40 | CRLHL7_ITS ---
For Patients: As a result of the Century Cures Act, medical imaging exams and procedure reports are released immediately into your electronic medical record. You may view this report before your referring provider. If you have questions, please contact your health care provider. BILATERAL DIGITAL SCREENING MAMMOGRAM WITH COMPUTER-AIDED DETECTION AND TOMOSYNTHESIS CLINICAL HISTORY: Routine screening exam. COMPARISON: 06/30/22, 08/17/20, 07/30/19. TECHNIQUE: Digital mammogram in CC and MLO projections including computer-aided detection (CAD). Tomosynthesis was used in this interpretation. BREAST COMPOSITION: There are scattered areas of fibroglandular density. FINDINGS: RIGHT Breast: Nodular density within the lower inner quadrant 4 cm from the nipple. LEFT Breast: No suspicious findings. IMPRESSION: RIGHT breast asymmetry/mass. RECOMMENDATIONS: Additional mammographic views of the RIGHT breast including 3D spot compression CC/MLO. RIGHT breast ultrasound may also be required. The [facility] will contact the patient. A lay language report of this examination will be provided to the patient. BI-RADS Category 0: Incomplete: Need Additional Imaging Evaluation Dictated by Stephane Davies MD @ 05/07/2024 11:48:30 AM jj/Dictated by: Stephane Davies MD @ 05/07/2024 11:48:00 AM (Electronically Signed)
== END 2024-05-06 14:18 | disposition home or self-care (01) ==
LOC: MAMMO 14:18
PROVIDERS: PCP Internal Medicine; Visit Provider Internal Medicine
DX: Z12.31 Encounter for screening mammogram for malignant neoplasm of breast (principal); N63.10 Unspecified lump in the right breast, unspecified quadrant
CPT/HCPCS: 77063; 77067

== ENCOUNTER 2024-05-19 10:25 | Outpatient (CLI) | payer OTHER, SELFPAY ==
--- NOTE | 2024-05-19 10:45 | CRLHL7_ITS ---
For Patients: As a result of the Cures Act, medical imaging exams and procedure reports are released immediately into your electronic medical record. You may view this report before your referring provider. If you have questions, please contact your health care provider. RIGHT DIAGNOSTIC MAMMOGRAM WITH COMPUTER-AIDED DETECTION AND TOMOSYNTHESIS RIGHT BREAST ULTRASOUND CLINICAL HISTORY: RIGHT breast mass/asymmetry. COMPARISON: 05/06/24, 11/28/22, 08/17/20. TECHNIQUE: Digital RIGHT mammogram in two projections. Computer-aided detection and tomosynthesis were used in this interpretation. Real-time ultrasound imaging of RIGHT breast with imaging documentation. BREAST COMPOSITION: There are scattered areas of fibroglandular density. FINDINGS: 3D spot compression CC/MLO RIGHT breast mammogram images submitted. Persistent nodular density is present within the lower inner quadrant. No architectural distortion. No suspicious calcifications. Targeted RIGHT breast ultrasound performed at 5 o`clock 4 cm from the nipple. In this location, there is a benign cyst measuring 7 x 4 x 6 mm. No internal vascularity or solid component. IMPRESSION: Benign cyst RIGHT breast 5 o`clock 4 cm from the nipple measuring 7 mm. No suspicious findings. RECOMMENDATIONS: Routine screening mammography. A lay language report of this examination will be provided to the patient. BI-RADS Category 2: Benign Dictated by Stephane Davies MD @ 05/19/2024 11:32:27 AM /sp SP/Dictated by: Stephane Davies MD @ 05/19/2024 11:32:00 AM (Electronically Signed)
--- NOTE | 2024-05-19 11:15 | CRLHL7_ITS ---
For Patients: As a result of the Century Cures Act, medical imaging exams and procedure reports are released immediately into your electronic medical record. You may view this report before your referring provider. If you have questions, please contact your health care provider. PLEASE SEE RIGHT BREAST DIAGNOSTIC MAMMOGRAM PERFORMED SAME DAY. CRL:sp SP/Dictated by: Stephane Davies MD @ 05/19/2024 11:30:00 AM (Electronically Signed)
== END 2024-05-19 10:26 | disposition home or self-care (01) ==
LOC: MAMMO 10:25
PROVIDERS: PCP Internal Medicine; Visit Provider Internal Medicine
DX: N63.10 Unspecified lump in the right breast, unspecified quadrant (principal); N60.01 Solitary cyst of right breast; R92.8 Other abnormal and inconclusive findings on diagnostic imaging of breast
CPT/HCPCS: 76642; 77065; G0279

== ENCOUNTER 2025-03-31 08:10 | Outpatient (CLI) | payer MEDICARE, SELFPAY ==
[2025-04-01 22:54] LABS: HPV Source Cervical
[2025-04-07 18:42] LABS: Pap Test Digital Imaging Done
== END 2025-03-31 08:11 | disposition home or self-care (01) ==
PROVIDERS: PCP Internal Medicine; Visit Provider Internal Medicine
DX: Z12.4 Encounter for screening for malignant neoplasm of cervix (principal)
CPT/HCPCS: 87624; 87625; 88141; 88142; 88175

== ENCOUNTER 2025-04-28 07:55 | Outpatient (CLI) | payer MEDICARE, SELFPAY ==
--- NOTE | 2025-04-28 09:19 | P.ANES_ITS ---
Anesthesia Charges Start Date/Time Anesthesia Start Date: 04/28/25 Anesthesia Start Time: 08:40 Stop Date/Time Anesthesia Stop Date: 04/28/25 Anesthesia Stop Time: 09:20 Coding CPT Codes CPT Codes: ANES LWR INTST SCR COLSC - 55837 ([id number]) P2 - PATIENT W/MILD SYST DISEASE, QK - BOTANY PROFESSOR 2-4 CNCRNT ANES PROC, QX - CIRCUIT DESIGNER SVC W/ MD MED DIRECTION
--- NOTE | 2025-04-28 09:19 | W.ANESCHARGE ---
Anesthesia Charges Start Date/Time Anesthesia Start Date: 04/28/25 Anesthesia Start Time: 08:40 Stop Date/Time Anesthesia Stop Date: 04/28/25 Anesthesia Stop Time: 09:20 Coding CPT Codes CPT Codes: ANES LWR INTST SCR COLSC - 50535 ([id number]) P2 - PATIENT W/MILD SYST DISEASE, QK - HOGSHEAD COOPER 2-4 CNCRNT ANES PROC, QX - SPLITTING MACHINE OPERATOR HELPER SVC W/ MD MED DIRECTION
--- NOTE | 2025-04-28 11:35 | P.ANES_ITS ---
Anesthesia Charges Start Date/Time Anesthesia Start Date: 04/28/25 Anesthesia Start Time: 08:40 Stop Date/Time Anesthesia Stop Date: 04/28/25 Anesthesia Stop Time: 09:20 Coding CPT Codes CPT Codes: ANES LWR INTST SCR COLSC - 14167 ([id number]) P2 - PATIENT W/MILD SYST DISEASE, QK - DIGITAL RESEARCH ANALYST 2-4 CNCRNT ANES PROC, QX - BREAK AND LOAD OPERATOR SVC W/ MD MED DIRECTION
--- NOTE | 2025-04-28 11:35 | W.ANESCHARGE ---
Anesthesia Charges Start Date/Time Anesthesia Start Date: 04/28/25 Anesthesia Start Time: 08:40 Stop Date/Time Anesthesia Stop Date: 04/28/25 Anesthesia Stop Time: 09:20 Coding CPT Codes CPT Codes: ANES LWR INTST SCR COLSC - 51779 ([id number]) P2 - PATIENT W/MILD SYST DISEASE, QK - WEIGH BOX TENDER 2-4 CNCRNT ANES PROC, QX - BUNDLE TIER AND LABELER SVC W/ MD MED DIRECTION
== END 2025-04-28 07:56 | disposition home or self-care (01) ==
LOC: OP CLINIC 07:56
PROVIDERS: PCP Internal Medicine; Visit Provider Internal Medicine
DX: Z12.11 Encounter for screening for malignant neoplasm of colon (principal); K57.30 Diverticulosis of large intestine without perforation or abscess without bleeding
CPT/HCPCS: 00812; 45378; J2704